=== PATIENT | female | born 1985 | race Caucasian/White ===

== ENCOUNTER 2017-08-26 08:54 | Emergency (ER) | payer MEDICAID ==
[~2017-08-26] VITALS: Ht 165.1 cm; Wt 51.7 kg
[2017-08-26 08:55] VITALS: BP_SYST 121
--- NOTE | 2017-08-26 08:55 | NUR ---
BROUGHT BACK TO BED #7 AND TRIAGED. REPORT GIVEN TO MURRAY
--- NOTE | 2017-08-26 09:01 | NUR ---
DR ALVARADO AT BEDSIDE FOR EVALUATION
--- NOTE | 2017-08-26 09:11 | NUR ---
XRAYS TAKEN AT BEDSIDE. PT TOLERATED IT WELL.
[2017-08-26] MEDS ORDERED: IBUPROFEN 800 MG TABLET PO ONE (09:15)
[2017-08-26 10:13] VITALS: BP_SYST 118
--- NOTE | 2017-08-26 10:13 | NUR ---
Patient given written and verbal discharge instructions and verbalizes understanding. ER MD discussed with patient the results and treatment provided. Patient in stable condition. ID arm band removed. Rx of motrin given. Patient educated on pain management and to follow up with PMD. Pain Scale 2. Podiatry clinic was given to pt to follow up [facility] for questions provided and answered.
== END 2017-08-26 10:13 | disposition home or self-care (01) ==
LOC: SED 08:54
DX: S92.422A Displaced fracture of distal phalanx of left great toe, initial encounter for closed fracture (principal); W22.8XXA Striking against or struck by other objects, initial encounter; Y93.89 Activity, other specified; Y92.89 Other specified places as the place of occurrence of the external cause; Y99.8 Other external cause status
CPT/HCPCS: 99284

== ENCOUNTER 2020-10-29 09:18 | Emergency (ER) | payer BC, MEDICAID ==
[~2020-10-29] VITALS: Ht 157.5 cm; Wt 50.8 kg
[2020-10-29 09:29] VITALS: BP_SYST 127
--- NOTE | 2020-10-29 09:30 | NUR ---
Patient to ER bed 7 to gown for evaluation. Side rails up.
--- NOTE | 2020-10-29 09:35 | NUR ---
Pt walked in to ER with c/o left shoulder pain, 03/09 since this morning. Reports h/o breast implants under the muscle a couple of years ago and she thinks pain is associated with that. V/S stable, pt is afebrile, denies n/v at this time. No distress noted
--- NOTE | 2020-10-29 09:37 | NUR ---
ER Dr. Cooper at bedside examining patient.
[2020-10-29 09:42] VITALS: BP_SYST 127
[2020-10-29] MEDS ORDERED: IBUPROFEN 600 MG TABLET PO ONE (10:00)
[2020-10-29] MEDS ORDERED: IBUP-1969 PO (10:07)
[2020-10-29] MEDS ORDERED: IBUPROFEN 600 MG TABLET ONE (10:11)
--- NOTE | 2020-10-29 10:17 | NUR ---
Patient given written and verbal discharge instructions and verbalizes understanding. ER MD discussed with patient the results and treatment provided. Patient in stable condition. ID arm band removed. Rx of Motrin given. Patient educated on pain management and to follow up with PMD. Pain Scale 0. [facility] for questions provided and answered. Medication side effect fact sheet provided.
== END 2020-10-29 10:17 | disposition home or self-care (01) ==
LOC: SED 09:18
DX: R07.89 Other chest pain (principal); Z79.899 Other long term (current) drug therapy
CPT/HCPCS: 81025; 93005; 99283

== ENCOUNTER 2022-07-21 15:17 | Emergency (ER) | payer BC ==
[~2022-07-21] VITALS: Ht 160 cm; Wt 54.4 kg
[~2022-07-21 15:17] MED LIST: IBUP-1969 PO
[2022-07-21 16:12] VITALS: BP_SYST 109
--- NOTE | 2022-07-21 19:30 | NUR ---
ER Dr.Dela Leyva in waiting room examining patient.
[2022-07-21] MEDS ORDERED: ACET-2634 PO (19:33)
[2022-07-21] MEDS ORDERED: INHA1EAC52 MC (19:33)
[2022-07-21] MEDS ORDERED: GUAI100S14 PO (19:33)
[2022-07-21] MEDS ORDERED: IBUP-1971 PO (19:33)
[2022-07-21] MEDS ORDERED: ALBMDI INH (19:33)
--- NOTE | 2022-07-21 21:35 | NUR ---
Patient presents to the ED for evaluation of a 1 week history of nonproductive cough associated with fevers and nasal congestion. Patient reports that she also has been having a 5-day history of intermittent, nonradiating right-sided rib pain only with coughing. Otherwise, no vomiting, diarrhea, chest pain, shortness of breath, headache, dizziness, hemoptysis, orthopnea, palpitations, diaphoresis, or other complaints. Patient breathing easy, respirations even unlabored. Pt ambulates with steady gait.
[2022-07-21 21:40] VITALS: BP_SYST 104
--- NOTE | 2022-07-21 21:40 | NUR ---
Patient given written and verbal discharge instructions and verbalizes understanding. ER MD discussed with patient the results and treatment provided. Patient in stable condition. ID arm band removed. Rx of Tylenol, Ventolin, Guaifenesin, Motrin sent to pharmacy of choice given. Patient educated on pain management and to follow up with PMD. Pain Scale 0/10. [facility] for questions provided and answered.
== END 2022-07-21 21:40 | disposition home or self-care (01) ==
LOC: SED 15:17
DX: J20.8 Acute bronchitis due to other specified organisms (principal); R05.9 Cough, unspecified; R50.9 Fever, unspecified; R09.81 Nasal congestion; Z79.899 Other long term (current) drug therapy; Z20.822 Contact with and (suspected) exposure to COVID-19
CPT/HCPCS: 36415; 99283